=== PATIENT | female | born 1985 | race Caucasian/White ===

== ENCOUNTER 2019-05-28 11:37 | Emergency (ER) | payer OTHER ==
[~2019-05-28] VITALS: Ht 162.6 cm; Wt 67.1 kg
[2019-05-28 13:08] LABS: URINE BILIRUBIN NEGATIVE (Negative); URINE BLOOD TRACE (Negative); URINE CLARITY CLEAR; URINE COLOR YELLOW; URINE GLUCOSE-RANDOM NEGATIVE (Negative); URINE KETONES NEGATIVE (Negative); URINE LEUKOCYTES-REFLEX NEGATIVE (Negative); URINE NITRITE-REFLEX NEGATIVE (Negative); URINE PROTEIN NEGATIVE (Negative); URINE SPECIFIC GRAVITY <= 1.005 (1.005-1.030); URINE UROBILINOGEN 0.2 E.U./dl (0.2-1.0)
[2019-05-28] MEDS ORDERED: VALIUM2 MG PO (14:17)
[2019-05-28 14:40] VITALS: BP 109/71
== END 2019-05-28 14:42 | disposition home or self-care (01) ==
LOC: M.ERS 11:37
PROVIDERS: Personal Emergency Response Attendant
DX: R42 Dizziness and giddiness (principal); F17.210 Nicotine dependence, cigarettes, uncomplicated; Z88.8 Allergy status to other drugs, medicaments and biological substances

== ENCOUNTER 2019-07-06 21:08 | Emergency (ER) | payer OTHER ==
[~2019-07-06] VITALS: Ht 162.6 cm; Wt 65.8 kg
[~2019-07-06 21:08] MED LIST: VALIUM2 MG PO
[2019-07-06 23:40] LABS: ABSOLUTE BASOPHILS 0.1 thou/uL (0.0-0.2); ABSOLUTE EOSINOPHILS 0.1 thou/uL (0.0-0.7); ABSOLUTE LYMPHOCYTES 3.4 thou/uL (0.8-5.3); ABSOLUTE MONOCYTES 0.9 thou/uL (0.0-1.2); ABSOLUTE NEUTROPHILS 6.3 thou/uL (1.6-8.1); BASOPHILS 0.6 %; EOSINOPHILS 0.6 %; HEMATOCRIT 39.2 % (37.0-47.0); HEMOGLOBIN 13.1 gm/dL (12.0-15.0); LYMPHOCYTES 31.7 %; MCH 31.9 pg (26.0-34.0); MCHC 33.6 g/dL (28.0-37.0); MCV 95.1 fL (80.0-100.0); MONOCYTES 8.1 %; MPV 8.4 fl. (7.2-11.1); NUCLEATED RBCS 0 /100WBC; PLATELET COUNT* 310 thou/uL (150-400); RBC 4.12 mil/uL (4.20-5.00); RDW-CV 12.5 % (10.5-14.5); WBC 10.6 thou/uL (4.0-11.0)
[2019-07-06 23:42] LABS: CALCIUM 9.2 mg/dL (8.5-10.1); CREATININE 0.7 mg/dL (0.6-1.3); MAGNESIUM 1.8 mg/dL (1.8-2.4); POTASSIUM 3.3 mmol/L (3.5-5.1)
[2019-07-07 00:47] VITALS: BP 115/78
--- NOTE | 2019-07-08 12:06 | EKG ---
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
--- NOTE | 2019-07-08 12:06 | EKG ---
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 Belt: BRITTANY : 1985 Requested By: Lidia Malik Order Number: [id number] Sheyla MD: Franc Blank Measurements Intervals [place] Rate: 77 P: 42 [place]: 144 QRS: 9 QRSD: 78 T: 30 QT: 376 QTc: 426 Interpretive Statements Sinus rhythm Ventricular premature complex Baseline wander in lead(s) III No previous ECG available for comparison Electronically Signed On 07-08-2019 12:06:20 APARTMENT COORDINATOR by Franc Blank [email or web address] <ELECTRONICALLY SIGNED> By: Franc Blank MD, [facility] 07/08/19 1206 19 19 Franc Blank MD, FACC /EPI
== END 2019-07-07 00:47 | disposition home or self-care (01) ==
LOC: M.ERS 21:08
PROVIDERS: Emergency Medicine
DX: E87.6 Hypokalemia (principal); R42 Dizziness and giddiness; F17.210 Nicotine dependence, cigarettes, uncomplicated; Z88.8 Allergy status to other drugs, medicaments and biological substances

== ENCOUNTER → 2019-07-22 | Outpatient (CLI) | payer OTHER | LOC: M.LAB 07-17 15:47 | DX: R42 Dizziness and giddiness (principal); R55 Syncope and collapse; R41.9 Unspecified symptoms and signs involving cognitive functions and awareness ==